=== PATIENT | male | born 1965 | race Caucasian/White ===

== ENCOUNTER 2018-07-02 17:53 | Emergency (ER) | payer OTHER ==
[~2018-07-02] VITALS: Ht 182.9 cm; Wt 79.4 kg
[2018-07-02 19:50] VITALS: BP 152/87
--- NOTE | 2018-07-02 20:52 | ER.PDOC ---
General Chief Complaint: Requesting Medical Care Stated Complaint: FACIAL LESION Time seen by MD: 20:48 Source: patient Exam Limitations: no limitations History of Present Illness Initial Comments Skin lesion right cheek for years. Severity: moderate Allergies: Coded Allergies: No Known Allergies (Unverified , 07/02/18) Past Medical History Surgical History: no surgical history Social History Smoking: cigarettes Constitutional: no symptoms reported EENTM: no symptoms reported Respiratory: no symptoms reported Cardiovascular: no symptoms reported Gastrointestinal: no symptoms reported Skin: see HPI All Other Systems: Reviewed and Negative Physical Exam General Appearance: alert, no distress Skin: lesion Location: face (right cheek) With: other (with irregular border and color change) Extremities: non-tender, nml ROM, no edema Neck: trachea midline, no swelling Respiratory: no resp. distress, breath sounds nml CVS: reg. rate & rhythm, heart sounds nml Abdomen: non-tender, no organomegaly NEURO/PSYCH: oriented x 3, CN's nml as tested, motor nml, sensation nml, mood/ affect nml Departure Time of Disposition: 20:49 Disposition: 01 HOME, SELF-CARE Impression: Primary Impression: Skin lesion of face Condition: Stable Referrals: PCP,UNKNOWN (PCP) PRIMARY CARE PROVIDER Additional Instructions: F/U with a PCP to refer you to a [facility] next week Duration or Time Spent with Pa: 20 mins MEENA STEPHENS MD Jul 02, 2018 20:52
[2018-07-02 20:59] VITALS: BP 175/80
[2018-07-02 21:11] VITALS: BP 175/80
== END 2018-07-02 21:10 | disposition home or self-care (01) ==
LOC: ER 17:53
DX: L98.9 Disorder of the skin and subcutaneous tissue, unspecified (principal); F17.210 Nicotine dependence, cigarettes, uncomplicated
CPT/HCPCS: 99281